=== PATIENT | male | born 1965 | race Caucasian/White ===

== ENCOUNTER 2018-03-21 09:49 | Emergency (ER) | payer OTHER ==
[~2018-03-21] VITALS: Ht 177.8 cm; Wt 86.0 kg
[2018-03-21 09:57] VITALS: BP 136/72; PULSE 72; RESP 16; TEMP 98.3; O2SAT 98
--- NOTE | 2018-03-21 10:27 | PD ---
HPI Chief Complaint: Dizziness Time Seen by Provider: 10:12 Travel History International Travel<30 days: No Contact w/Intl Traveler<30days: No Traveled to known affect area: No History of Present Illness HPI 52-year-old male that presents to the ED for evaluation of possible exposure to fentanyl patch. Per patient and significant other than noted that the patient was feeling dizzy and then noted that the patch from the that she uses for chronic pain was located on his left ankle. Per family and patient the patch itself was not really attached this chemo more to his interim bilaterally on him. This has never happened before. Patient does not take any opiates. Per patient he does not feel short of breath or has any altered mental status. She just feels slightly lightheaded but otherwise unremarkable. He is able to ambulate with no issues. They are mainly concerned about exposure to the fentanyl. Fentanyl patch is about 0.25 mcg. Per this appears to be already used by her for about a day or 2. Patient has never taken any opiates or narcotics. Denies any allergies to medication. Has no pain at this time. No chest pain or shortness of breath. He denies any drugs or alcohol. Denies any other medical complaints at this time. [facility] Past Medical History Medical History: Denies Significant Hx Influenza Vaccination: No Past Surgical History Surgical History: No Previous Surgery Social History Alcohol Use: Yes (RARELY) Tobacco Use: No Substance Use: No Allergies-Medications (Allergen,Severity, Reaction): Coded Allergies: No Known Allergies (Unverified , 03/21/18) Reported Meds & Prescriptions Reported Meds & Active Scripts Active No Active Prescriptions or Reported Medications Review of Systems Except as stated in HPI: all other systems reviewed are Neg Physical Exam Narrative GENERAL: SKIN: Warm and dry. HEAD: Atraumatic. Normocephalic. EYES: Pupils equal and round. No scleral icterus. No injection or drainage. ENT: No nasal bleeding or discharge. Mucous membranes pink and moist. Tongue is midline. No uvula deviation. NECK: Trachea midline. No JVD. CARDIOVASCULAR: Regular rate and rhythm. No murmurs, S3, S4. RESPIRATORY: No accessory muscle use. Clear to auscultation. Breath sounds equal bilaterally. GASTROINTESTINAL: Abdomen soft, non-tender, nondistended. Hepatic and splenic margins not palpable. MUSCULOSKELETAL: Extremities without clubbing, cyanosis, or edema. No obvious deformities. Full range of motion of the upper and lower extremities bilaterally. 2+ pulses bilaterally. NEUROLOGICAL: Awake and alert. No obvious cranial nerve deficits. Motor grossly within normal limits. Five out of 5 muscle strength in the arms and legs. Normal speech. PSYCHIATRIC: Appropriate mood and affect; insight and judgment normal. Data Data Last Documented VS Vital Signs Date Time Temp Pulse Resp B/P (MAP) Pulse Ox O2 Delivery O2 Flow Rate FiO2 03/21/18 09:57 98.3 72 16 136/72 (93) 98 Orders Orders Ed Discharge Order (03/21/18 10:22) [facility] Medical Decision Making Medical Screen Exam Complete: Yes Emergency Medical Condition: Yes Medical Record Reviewed: Yes Differential Diagnosis Accidental opiate exposure versus dizziness versus lightheadedness versus opiate abuse less likely Narrative Course 52-year-old male that presents to the ED for evaluation of accidental exposure to fentanyl patch. Patient was properly examined and was found to have no signs of acute medical distress. His exam is fairly benign. I do suspect the patient was likely exposed to the opiate and likely causing some of the symptoms. He does not appear to have any of the more serious symptoms like shortness of breath, respiratory distress or anaphylaxis. I did offer patient lab work for evaluation of other conditions but he declines at this time. I suspect that this is purely accidental. There is no sign of any foul play or attempted recreational use. Family and patient provide me with the fentanyl patch that was attached to his leg does appear to be having used and appeared to be exposed to sweat from being on the significant other's arm. Case discussed with my attending who agrees with plan. 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 I do highly recommend that he contacts his employer for further evaluation mainly to see whether patient is capable of flying and this might require more testing required by his company that is not unfortunately performed here. he understands and agrees. Follow-up with PCP. See ED if worsening symptoms. Diagnosis Primary Impression: Accidental opiate poisoning Qualified Codes: T40.601A - Poisoning by unspecified narcotics, accidental ( unintentional), initial encounter Patient Instructions: General Instructions Departure Forms: Tests/Procedures, Work Release Special Instructions: Mr Banks was evaluated on 03/21/18 for accidental exposure to a used fentanyl patch to his ankle from his significant other. This was purely accidental. Patient should be able to work unless your company's policies require evaluation by the company's own physicians/employmed staff. Additional Instructions: Follow up with your employer for further eval if needed as they might require their physicians or staff to evaluate you before they allow you to continue to work per your company's policies. See ED if symptoms do not improve by tonight or picker tender tomorrow. Drink plenty of fluids. Med/Other Pt SpecificInfo: No Change to Meds Scripts No Active Prescriptions or Reported Meds Disposition: 01 DISCHARGE HOME Condition: Aureliano Gage March 21, 2018 10:27
== END 2018-03-21 10:45 | disposition home or self-care (01) ==
LOC: PHED 09:49
DX: T40.4X1A Poisoning by other synthetic narcotics, accidental (unintentional), initial encounter (principal); R42 Dizziness and giddiness
CPT/HCPCS: 99281